=== PATIENT | male | born 2000 | race Caucasian/White ===

== ENCOUNTER → 2019-11-20 | Outpatient (CLI) | payer OTHER ==
--- NOTE | 2019-11-21 03:38 | MR ---
EXAMINATION TYPE: MR brain wo/w con DATE OF EXAM: 11/20/2019 COMPARISON: HISTORY: R/O MS, sharp pain and numbness in legs CONTRAST: Standard multiplanar, multisequence MRI departmental protocol utilizing 6.5 mL intravenous Gadavist g adolinium contrast. Ventricles and sulci appear normal. There is no mass effect nor midline shift. Diffusion images show no evidence of an infarct. Corpus callosum appears normal. Sella turcica appears normal. Brainstem ap pears normal. There is no evidence of cerebral edema. Peters-white matter structures have normal signal pattern. The contrast images show no pathologic enhancement. There is normal enhancement of the veno us sinuses. Optic chiasm appears normal. Pituitary stalk is in the midline. IMPRESSION: Normal MR scan of the brain. No evidence of demyelinating disease.
== END | disposition home or self-care (01) ==
LOC: RADMRIMAIN 15:17
PROVIDERS: ATTEND Nurse Practitioner Adult Health
DX: G43.909 Migraine, unspecified, not intractable, without status migrainosus (principal)
CPT/HCPCS: 70553; A9585

== ENCOUNTER 2020-07-29 13:00 | Emergency (ER) | payer OTHER ==
[2020-07-29 13:08] VITALS: TEMP 98.1
[2020-07-29] MEDS ORDERED: ACETAMINOPHEN TAB 500 MG TAB PO STA (13:25)
[2020-07-29] MEDS ORDERED: methylPREDNISolone SOD SUCCI 125 MG/2 ML VIAL IV STA (13:26)
[2020-07-29] MEDS ORDERED: SODIUM CHLORIDE 0.9% 1,000 ML IV ONE (13:26)
--- NOTE | 2020-07-29 13:28 | ED ---
SOB HPI - General Chief Complaint: Shortness of Breath Stated Complaint: Chest Pain, SOB Time Seen by Provider: 07/29/20 13:21 Source: patient, RN notes reviewed, old records reviewed Mode of arrival: ambulatory Limitations: no limitations - History of Present Illness Initial Comments: 20-year-old male presents emergency department today with cough shortness of breath and body aches for the past 2 days. He reports he is exposed with possible covid contact this weekend. Patient denies recent Motrin or Tylenol. He reports he does have chest pain with breathing. Patient states that he has no nausea or vomiting. He is otherwise healthy. He does occasionally vape. - Related Data Previous Rx's Medication Instructions Recorded Albuterol Inhaler [Ventolin Hfa 1 puff INHALATION RT-QID #1 puff 07/29/20 Inhaler] Allergies Allergy/AdvReac Type Severity Reaction Status Date / Time No Known Allergies Allergy Verified 07/29/20 13:08 Review of Systems ROS Statement: Those systems with pertinent positive or pertinent negative responses have been documented in the HPI. ROS Other: All systems not noted in ROS Statement are negative. Past Medical History Past Medical History: No Reported History History of Any Multi-Drug Resistant Organisms: None Reported Past Surgical History: Ear Surgery Past Psychological History: No Psychological Hx Reported Smoking Status: Vaper Past Alcohol Use History: None Reported Past Drug Use History: Marijuana General Exam - General Exam Comments Initial Comments: A 20-year-old male. No distress Limitations: no limitations General appearance: alert, in no apparent distress Head exam: Present: atraumatic, normocephalic, normal inspection Eye exam: Present: normal appearance, PERRL, EOMI. Absent: scleral icterus, conjunctival injection, periorbital swelling ENT exam: Present: normal exam, mucous membranes moist Neck exam: Present: normal inspection. Absent: tenderness, meningismus, lymphadenopathy Respiratory exam: Present: normal lung sounds bilaterally. Absent: respiratory distress, wheezes, rales, rhonchi, stridor Cardiovascular Exam: Present: regular rate, normal rhythm, normal heart sounds. Absent: systolic murmur, diastolic murmur, rubs, gallop, clicks GI/Abdominal exam: Present: soft, normal bowel sounds. Absent: distended, tenderness, guarding, rebound, rigid Extremities exam: Present: normal inspection, full ROM, normal capillary refill. Absent: tenderness, pedal edema, joint swelling, calf tenderness Back exam: Present: normal inspection Neurological exam: Present: alert, oriented X3, CN II-XII intact Psychiatric exam: Present: normal affect, normal mood Skin exam: Present: warm Course Vital Signs 07/29/20 13:05 Temperature 98.1 F Pulse Rate 89 Respiratory 18 Rate Blood Pressure 116/77 O2 Sat by Pulse 100 Oximetry Medical Decision Making - Medical Decision Making 20-year-old male present to the ER today for evaluation of complaints of difficulty breathing bodyaches chest discomfort. Patient was exposed to cocaine 19 over the weekend. At this time patient's labs reviewed. Mildly dehydrated lactic reports here appears confluent bolus. Chest x-rays benign for acute process. EKG is reviewed and unremarkable. Discussed at this time with patient's symptoms is likely that he does have viral cold 119 infection. Discussed return parameters and symptom control home. - Lab Data Result diagrams: 07/29/20 13:26 07/29/20 13:26 Lab Results 07/29/20 07/29/20 07/29/20 Range/Units 13:26 13:26 13:26 WBC 4.6 (3.8-10.6) k/uL RBC 5.78 (4.30-5.90) m/uL Hgb 17.2 (13.0-17.5) gm/dL Hct 50.7 (39.0-53.0) % MCV 87.8 (80.0-100.0) fL MCH 29.8 (25.0-35.0) pg MCHC 34.0 (31.0-37.0) g/dL RDW 12.4 (11.5-15.5) % Plt Count 199 (150-450) k/uL Neutrophils % 44 % Lymphocytes % 41 % Monocytes % 6 % Eosinophils % 4 % Basophils % 1 % Neutrophils # 2.1 (1.3-7.7) k/uL Lymphocytes # 1.9 (1.0-4.8) k/uL Monocytes # 0.3 (0-1.0) k/uL Eosinophils # 0.2 (0-0.7) k/uL Basophils # 0.0 (0-0.2) k/uL Sodium 140 (137-145) mmol/L Potassium 3.9 (3.5-5.1) mmol/L Chloride 105 (98-107) mmol/L Carbon Dioxide 21 L (22-30) mmol/L Anion Gap 14 mmol/L BUN 11 (9-20) mg/dL Creatinine 0.98 (0.66-1.25) mg/dL Est GFR (CKD-EPI)AfAm >90 (>60 ml/min/1.73 sqM) Est GFR (CKD-EPI)NonAf >90 (>60 ml/min/1.73 sqM) Glucose 97 (74-99) mg/dL Plasma Lactic Acid Andrew 3.0 H* (0.7-2.0) mmol/L Calcium 10.5 H (8.4-10.2) mg/dL Magnesium 2.1 (1.6-2.3) mg/dL Total Bilirubin 1.0 (0.2-1.3) mg/dL AST 20 (17-59) U/L ALT 13 (4-49) U/L Alkaline Phosphatase 74 (38-126) U/L Lactate Dehydrogenase 319 (313-618) U/L C-Reactive Protein <5.0 (<10.0) mg/L Total Protein 8.7 H (6.3-8.2) g/dL Albumin 5.5 H (3.5-5.0) g/dL 07/29/20 13:27 EKG shows sinus rhythm with short GA interval. Other crowe normal EKG. Ventricular rate of 71 bpm. Verbal is 106 ms. QS duration is 98 ms. QT QTc is 46/[address] elevation. Disposition Clinical Impression: Suspected COVID-19 virus infection Disposition: HOME SELF-CARE Condition: Good Instructions (If sedation given, give patient instructions): Upper Respiratory Infection (ED) Additional Instructions: Patient advised rest, increase fluid intake. Alternate Tylenol and Motrin for fever and body aches. Take medication using inhaler as prescribed. Patient should be avoiding any further contact until results of testing and quarantine for 14 days. Return to the emergency department if any severe worsening symptoms occur Prescriptions: Albuterol Inhaler [Ventolin Hfa Inhaler] 1 puff INHALATION RT-QID #1 puff Is patient prescribed a controlled substance at d/c from ED?: No Referrals: None,Stated [Primary Care Provider] - 1-2 days Valerie Patel MD [REFERRING] - 1-2 days Time of Disposition: 14:25
[2020-07-29 13:51] LABS: Basophils % (A) 1 %; Eosinophils # (A) 0.2 k/uL (0-0.7); Eosinophils % (A) 4 %; HCT 50.7 % (39.0-53.0); HGB 17.2 gm/dL (13.0-17.5); Lymphocytes # (A) 1.9 k/uL (1.0-4.8); Lymphocytes % (A) 41 %; MCH 29.8 pg (25.0-35.0); MCV 87.8 fL (80.0-100.0); Mean Platelet Volume 7.8; Monocytes # (A) 0.3 k/uL (0-1.0); Monocytes % (A) 6 %; Neutrophils # (A) 2.1 k/uL (1.3-7.7); Neutrophils % (A) 44 %; Platelet Count 199 k/uL (150-450); RBC 5.78 m/uL (4.30-5.90); RDW 12.4 % (11.5-15.5); WBC 4.6 k/uL (3.8-10.6)
[2020-07-29 14:01] LABS: ALT 13 U/L (4-49); AST 20 U/L (17-59); African American GFR (CKD) >90 (>60 ml/min/1.73 sqM); Albumin 5.5 g/dL (3.5-5.0); Alkaline Phosphatase 74 U/L (38-126); Anion Gap 14 mmol/L; Blood Urea Nitrogen 11 mg/dL (9-20); C Reactive Protein <5.0 mg/L (<10.0); Calcium 10.5 mg/dL (8.4-10.2); Carbon Dioxide 21 mmol/L (22-30); Chloride 105 mmol/L (98-107); Glucose 97 mg/dL (74-99); LDH 319 U/L (313-618); Magnesium 2.1 mg/dL (1.6-2.3); Non-African American GFR(CKD) >90 (>60 ml/min/1.73 sqM); Potassium 3.9 mmol/L (3.5-5.1); Sodium 140 mmol/L (137-145); Total Protein 8.7 g/dL (6.3-8.2)
--- NOTE | 2020-07-29 14:15 | XR ---
EXAMINATION TYPE: XR chest 1V portable DATE OF EXAM: 07/29/2020 CLINICAL HISTORY: Suspected COVID-19 pneumonia. TECHNIQUE: Portable frontal view of the chest. COMPARISON: None FINDINGS: The cardiomediastinal silhouette is within normal limits for size. Pulmonary vasculature i s normal. There is no focal air space opacity, pleural effusion, or pneumothorax seen. The osseous st ructures are intact. IMPRESSION: No focal airspace opacity.
[2020-07-29 14:58] VITALS: BP 113/65; PULSE 63; RESP 18
== END 2020-07-29 14:58 | disposition home or self-care (01) ==
LOC: EC 13:00
DX: R06.02 Shortness of breath (principal); R07.1 Chest pain on breathing; E86.0 Dehydration; F17.290 Nicotine dependence, other tobacco product, uncomplicated; Z20.828 Contact with and (suspected) exposure to other viral communicable diseases
CPT/HCPCS: 36415; 93005; 80053; 83605; 83615; 83735; 85025; 86140; 71045; 99285; 96374; U0003; J2930

== ENCOUNTER → 2021-10-07 | Outpatient (CLI) | payer OTHER ==
--- NOTE | 2021-10-07 11:27 | MR ---
EXAMINATION TYPE: MR shoulder LT wo con DATE OF EXAM: 10/07/2021 COMPARISON: None. HISTORY: Left shoulder pain for 4 months due to fall TECHNIQUE: Multiplanar, multisequence imaging of the left shoulder is performed without contrast. FINDINGS: Rotator Cuff: Distal supraspinatus and infraspinatus tendons are intact. Rotator cuff muscle bulk is preserved. Subscapularis tendon within normal limits. Acromioclavicular Joint: Within normal limits Glenohumeral Joint: No significant effusion or spine. Labrum: The labrum appears grossly intact given limitation of non-arthrogram study. Biceps Tendon: The long head of biceps is in normal location within bicipital groove. Bone marrow signal: No suspicious focal edema. Other: No slight irregularities along the lateral aspect of the visualized ribs could reflect healed nondisplaced fractures given patient's history. For reference axial image 2. IMPRESSION: No rotator cuff or labral tear identified. Possible healed posterior lateral nondisplaced left rib fractures. Correlate clinically.
== END | disposition home or self-care (01) ==
LOC: RADMRIMAIN 08:19
PROVIDERS: ATTEND Internal Medicine
DX: M25.512 Pain in left shoulder (principal)

== ENCOUNTER 2021-11-23 16:29 | Emergency (ER) | payer OTHER ==
[2021-11-23] MEDS ORDERED: SODIUM CHLORIDE 0.9% 1,000 ML IV STA (16:54)
[2021-11-23] MEDS ORDERED: ONDANSETRON 4 MG/2 ML VIAL IVP STA (16:54)
[2021-11-23] MEDS ORDERED: KETOROLAC 30 MG/ML 1 ML VIAL IVP STA (16:54)
--- NOTE | 2021-11-23 17:00 | ED ---
General Adult HPI - General Chief complaint: Chest Pain Stated complaint: headache, abd pain Time Seen by Provider: 11/23/21 16:40 Source: patient, RN notes reviewed Mode of arrival: wheelchair Limitations: no limitations - History of Present Illness Initial comments: 21-year-old male presents to the emergency department accompanied by his mother for evaluation of left lateral chest pain that radiates into the left axilla. Patient states this pain began shortly after he was diagnosed with Covid the end of October and has persisted since. Patient states his symptoms are also accompanied by shortness of breath, occasional dry cough, loss of appetite, nausea, and vomiting. Reports a recent visit to urgent care where he was prescribed Flexeril and Pepcid; reports no change in symptoms. States he took Tylenol earlier today for headache, but did not experience any improvement in chest wall pain. States pain is made worse by movement of the upper extremities and palpation. States he has been feeling so poorly that he is going nowhere for the past month. Denies fever, chills, dizziness, abdominal pain, constipation, diarrhea, dysuria, or hematuria. - Related Data Home Medications Medication Instructions Recorded Confirmed Cyclobenzaprine [Flexeril] 5 mg PO BID PRN 11/23/21 11/23/21 Famotidine 20 mg PO HS 11/23/21 11/23/21 Previous Rx's Medication Instructions Recorded Ibuprofen [Motrin] 600 mg PO Q8HR PRN #30 tab 11/23/21 Ondansetron Odt [Zofran Odt] 4 mg PO Q8HR PRN #10 tab 11/23/21 Allergies Allergy/AdvReac Type Severity Reaction Status Date / Time No Known Allergies Allergy Verified 11/23/21 17:09 Review of Systems ROS Statement: Those systems with pertinent positive or pertinent negative responses have been documented in the HPI. ROS Other: All systems not noted in ROS Statement are negative. Past Medical History Past Medical History: No Reported History History of Any Multi-Drug Resistant Organisms: None Reported Past Surgical History: Ear Surgery Past Psychological History: No Psychological Hx Reported Smoking Status: Vaper Past Alcohol Use History: None Reported Past Drug Use History: Marijuana General Exam Limitations: no limitations (Well-developed, very slender male in no acute distress. Initial temperature 97.7, pulse 99, respirations 18, blood pressure 146/104, pulse ox 98% on room air.) General appearance: alert, in no apparent distress ENT exam: Present: normal exam, normal oropharynx, mucous membranes moist Respiratory exam: Present: normal lung sounds bilaterally, chest wall tenderness (Left lateral chest wall tenderness upon palpation from the sixth intercostal space extending to the left axilla). Absent: respiratory distress, wheezes, rales, rhonchi, stridor Cardiovascular Exam: Present: regular rate, normal rhythm, normal heart sounds. Absent: systolic murmur, diastolic murmur, rubs, gallop, clicks GI/Abdominal exam: Present: soft, normal bowel sounds. Absent: distended, tenderness, guarding, rebound, rigid Back exam: Present: normal inspection. Absent: CVA tenderness (R), CVA tenderness (L) Neurological exam: Present: alert, oriented X3, CN II-XII intact Psychiatric exam: Present: normal affect, normal mood Skin exam: Present: warm, dry, intact, normal color. Absent: rash Course Vital Signs 11/23/21 11/23/21 16:32 17:22 Temperature 97.7 F 98.4 F Pulse Rate 99 63 Respiratory 18 14 Rate Blood Pressure 146/104 105/75 O2 Sat by Pulse 98 99 Oximetry Medical Decision Making - Medical Decision Making 21-year-old male with recent Covid illness presents to the emergency department for evaluation of left-sided chest pain, poor appetite, and fatigue. Upon exam, patient is no acute distress, though does not appear to feel well. Vital signs are stable. Left lateral chest tenderness upon palpation radiating up into the left axilla. Chest x-ray was unremarkable. EKG shows normal sinus rhythm. Laboratory studies were obtained and are unremarkable. Patient was given IV fluids, nausea medicine, and pain medicine with improvement. Able to tolerate small intake of fluids. Results were reviewed. This appears to be noncardiac chest pain, most likely costochondritis. Poor appetite, fatigue, and ongoing nausea may be related to recent Covid illness. Findings discussed with patient and mother. He will be discharged home to follow up with his PCP as scheduled. Prescribed Zofran. Return parameters were discussed in detail. Patient and mother verbalized understanding and agree with this plan. This patient's care was discussed with my attending Dr. Rubio. - Lab Data Result diagrams: 11/23/21 16:18 02/22/22 16:18 Lab Results 11/23/21 11/23/21 11/23/21 Range/Units 16:18 16:18 16:18 WBC 4.9 (3.8-10.6) k/uL RBC 5.33 (4.30-5.90) m/uL Hgb 16.0 (13.0-17.5) gm/dL Hct 46.3 (39.0-53.0) % MCV 86.8 (80.0-100.0) fL MCH 30.1 (25.0-35.0) pg MCHC 34.7 (31.0-37.0) g/dL RDW 11.6 (11.5-15.5) % Plt Count 165 (150-450) k/uL MPV 7.5 Neutrophils % 62 % Lymphocytes % 27 % Monocytes % 7 % Eosinophils % 2 % Basophils % 2 % Neutrophils # 3.0 (1.3-7.7) k/uL Lymphocytes # 1.3 (1.0-4.8) k/uL Monocytes # 0.3 (0-1.0) k/uL Eosinophils # 0.1 (0-0.7) k/uL Basophils # 0.1 (0-0.2) k/uL D-Dimer (<0.60) mg/L FEU Sodium 139 (137-145) mmol/L Potassium 3.8 (3.5-5.1) mmol/L Chloride 104 (98-107) mmol/L Carbon Dioxide 24 (22-30) mmol/L Anion Gap 11 mmol/L BUN 7 L (9-20) mg/dL Creatinine 0.71 (0.66-1.25) mg/dL Est GFR (CKD-EPI)AfAm >90 (>60 ml/min/1.73 sqM) Est GFR (CKD-EPI)NonAf >90 (>60 ml/min/1.73 sqM) Glucose 103 H (74-99) mg/dL Calcium 10.0 (8.4-10.2) mg/dL Magnesium 2.1 (1.6-2.3) mg/dL Total Bilirubin 1.3 (0.2-1.3) mg/dL AST 20 (17-59) U/L ALT 16 (4-49) U/L Alkaline Phosphatase 81 (38-126) U/L Troponin I <0.012 (0.000-0.034) ng/mL Total Protein 8.0 (6.3-8.2) g/dL Albumin 5.1 H (3.5-5.0) g/dL 11/23/21 Range/Units 16:18 WBC (3.8-10.6) k/uL RBC (4.30-5.90) m/uL Hgb (13.0-17.5) gm/dL Hct (39.0-53.0) % MCV (80.0-100.0) fL MCH (25.0-35.0) pg MCHC (31.0-37.0) g/dL RDW (11.5-15.5) % Plt Count (150-450) k/uL MPV Neutrophils % % Lymphocytes % % Monocytes % % Eosinophils % % Basophils % % Neutrophils # (1.3-7.7) k/uL Lymphocytes # (1.0-4.8) k/uL Monocytes # (0-1.0) k/uL Eosinophils # (0-0.7) k/uL Basophils # (0-0.2) k/uL D-Dimer <0.17 (<0.60) mg/L FEU Sodium (137-145) mmol/L Potassium (3.5-5.1) mmol/L Chloride (98-107) mmol/L Carbon Dioxide (22-30) mmol/L Anion Gap mmol/L BUN (9-20) mg/dL Creatinine (0.66-1.25) mg/dL Est GFR (CKD-EPI)AfAm (>60 ml/min/1.73 sqM) Est GFR (CKD-EPI)NonAf (>60 ml/min/1.73 sqM) Glucose (74-99) mg/dL Calcium (8.4-10.2) mg/dL Magnesium (1.6-2.3) mg/dL Total Bilirubin (0.2-1.3) mg/dL AST (17-59) U/L ALT (4-49) U/L Alkaline Phosphatase (38-126) U/L Troponin I (0.000-0.034) ng/mL Total Protein (6.3-8.2) g/dL Albumin (3.5-5.0) g/dL - EKG Data EKG shows normal: sinus rhythm Rate: normal EKG Comments: EKG was obtained at 1643 and shows normal sinus rhythm with short WA interval. Ventricular rate 64, WA interval 109, QRS duration 102, QT/QTC 411/4021. Borderline ECG. - Radiology Data Radiology results: report reviewed, image reviewed Two-view chest x-ray was obtained. Report was reviewed in its entirety. Impression per Dr. Gutierrez as no acute cardiopulmonary disease/process. Disposition Clinical Impression: Costochondritis, Nausea Disposition: HOME SELF-CARE Condition: Stable Instructions (If sedation given, give patient instructions): Costochondritis (ED), Acute Nausea and Vomiting (ED) Additional Instructions: Take Zofran 30 minutes prior to meal, especially if nauseous. Take Motrin for chest wall pain. Follow-up with your PCP as scheduled. Return to the emergency department with any new, worsening, or concerning symptoms. Prescriptions: Ibuprofen [Motrin] 600 mg PO Q8HR PRN #30 tab PRN Reason: Pain Ondansetron Odt [Zofran Odt] 4 mg PO Q8HR PRN #10 tab PRN Reason: Nausea Is patient prescribed a controlled substance at d/c from ED?: No Referrals: Aguilar Cross MD [REFERRING] - 1-2 days Time of Disposition: 19:22
[2021-11-23 17:25] VITALS: BP 105/75; PULSE 63; RESP 14; TEMP 98.4
[2021-11-23 17:25] LABS: Basophils # (A) 0.1 k/uL (0-0.2); Basophils % (A) 2 %; Eosinophils # (A) 0.1 k/uL (0-0.7); Eosinophils % (A) 2 %; HCT 46.3 % (39.0-53.0); Lymphocytes # (A) 1.3 k/uL (1.0-4.8); Lymphocytes % (A) 27 %; MCH 30.1 pg (25.0-35.0); MCHC 34.7 g/dL (31.0-37.0); MCV 86.8 fL (80.0-100.0); Mean Platelet Volume 7.5; Monocytes # (A) 0.3 k/uL (0-1.0); Monocytes % (A) 7 %; Neutrophils % (A) 62 %; Platelet Count 165 k/uL (150-450); RBC 5.33 m/uL (4.30-5.90); RDW 11.6 % (11.5-15.5); WBC 4.9 k/uL (3.8-10.6)
[2021-11-23 17:36] LABS: ALT 16 U/L (4-49); AST 20 U/L (17-59); African American GFR (CKD) >90 (>60 ml/min/1.73 sqM); Albumin 5.1 g/dL (3.5-5.0); Alkaline Phosphatase 81 U/L (38-126); Anion Gap 11 mmol/L; Blood Urea Nitrogen 7 mg/dL (9-20); Carbon Dioxide 24 mmol/L (22-30); Chloride 104 mmol/L (98-107); Glucose 103 mg/dL (74-99); Magnesium 2.1 mg/dL (1.6-2.3); Non-African American GFR(CKD) >90 (>60 ml/min/1.73 sqM); Potassium 3.8 mmol/L (3.5-5.1); Sodium 139 mmol/L (137-145); Total Bilirubin 1.3 mg/dL (0.2-1.3)
--- NOTE | 2021-11-23 17:50 | XR ---
EXAMINATION TYPE: XR chest 2V DATE OF EXAM: 11/23/2021 5:31 PM COMPARISON:Chest radiographs from January 2020 TECHNIQUE: XR chest 2V Frontal and lateral views of the chest. CLINICAL INDICATION:Male, 21 years old with history of Chest Pain; FINDINGS: Lungs/Pleura: There is no evidence of pleural effusion, focal consolidation, or pneumothorax. Pulmonary vascularity: Unremarkable. Heart/mediastinum: Cardiomediastinal silhouette is unremarkable. Musculoskeletal: No acute osseous pathology. IMPRESSION: No acute cardiopulmonary disease/process.
[2021-11-23] MEDS ORDERED: ONDANSETRON 4 MG ODT STARTER PACK 2 TAB BTL PO STA (19:23)
== END 2021-11-23 19:39 | disposition home or self-care (01) ==
LOC: EC 16:29
DX: M94.0 Chondrocostal junction syndrome [Tietze] (principal); R11.0 Nausea; F17.290 Nicotine dependence, other tobacco product, uncomplicated; F12.90 Cannabis use, unspecified, uncomplicated
CPT/HCPCS: 99285; 96374; 96375; 96361; 36415; 93005; 85379; 80053; 83735; 84484; 85025; 71046; J2405; J1885

== ENCOUNTER 2022-05-06 09:35 | Emergency (ER) | payer OTHER ==
[2022-05-06 09:47] VITALS: TEMP 98.1
[2022-05-06] MEDS ORDERED: KETOROLAC 15 MG/ML 1 ML VIAL IVP STA (10:13)
--- NOTE | 2022-05-06 10:13 | ED ---
General Adult HPI - General Chief complaint: Chest Pain Stated complaint: chest pain Time Seen by Provider: 05/06/22 10:02 Source: patient, family, RN notes reviewed, old records reviewed Mode of arrival: ambulatory Limitations: no limitations - History of Present Illness Initial comments: This is a well-appearing 22-year-old male that presents to the emergency room with a family member complaining of left-sided chest pain that came on this morning while he was getting ready to go to work. Patient states that he has never had this pain before. It is worse with palpation or deep breaths. Mostly on the left side and left upper back. He denies any fevers. Denies any medical history. He does vape with recreational marijuana every couple hours. -: hour(s) Location: chest (Left-sided) Severity scale (1-10): 10 Quality: constant Consistency: constant Improves with: none Worsens with: movement, other (Palpation or deep breath) Associated Symptoms: denies other symptoms Treatments Prior to Arrival: none - Related Data Previous Rx's Medication Instructions Recorded Ibuprofen [Motrin] 600 mg PO Q8HR PRN #30 tab 05/06/22 Allergies Allergy/AdvReac Type Severity Reaction Status Date / Time No Known Allergies Allergy Verified 05/06/22 12:01 Review of Systems ROS Statement: Those systems with pertinent positive or pertinent negative responses have been documented in the HPI. ROS Other: All systems not noted in ROS Statement are negative. Past Medical History Past Medical History: No Reported History History of Any Multi-Drug Resistant Organisms: None Reported Past Surgical History: Ear Surgery Past Psychological History: No Psychological Hx Reported Smoking Status: Vaper Past Alcohol Use History: None Reported Past Drug Use History: Marijuana General Exam Limitations: no limitations General appearance: alert, in no apparent distress Head exam: Present: atraumatic Neck exam: Present: normal inspection, full ROM. Absent: tenderness, meningismus Respiratory exam: Present: normal lung sounds bilaterally. Absent: respiratory distress, accessory muscle use Cardiovascular Exam: Present: regular rate, normal rhythm GI/Abdominal exam: Present: soft. Absent: distended, tenderness, rigid Extremities exam: Present: normal capillary refill. Absent: pedal edema Back exam: Present: normal inspection. Absent: tenderness, CVA tenderness (R), CVA tenderness (L), rash noted Neurological exam: Present: alert, oriented X3 Psychiatric exam: Present: normal affect, normal mood Skin exam: Present: warm, dry, normal color. Absent: cyanosis, diaphoretic, p etechiae, pallor Course Vital Signs 05/06/22 05/06/22 09:44 12:10 Temperature 98.1 F Pulse Rate 79 59 L Respiratory 20 18 Rate Blood Pressure 119/83 112/70 O2 Sat by Pulse 100 97 Oximetry Medical Decision Making - Medical Decision Making Patient presents with left-sided chest pain that started today. He denies cough, fevers, nausea vomiting or diarrhea. There is no evidence of leukocytosis. Hemoglobin and hematocrit are stable. Troponin is 0.012 and EKG shows sinus rhythm. Vital signs are stable. He has no medical history and does not take any medicine on a daily basis. He does vape with marijuana. PERC score negative. On exam, patient's pain is worse with inspiration and palpation. This is likely costochondritis. He was given Toradol for pain. Instructed to take Motrin as needed for pain and increase his fluid intake. Follow-up with his primary care doctor next week. Return to the emergency room with any new or concerning symptoms. Case discussed with Dr. Rubio. - Lab Data Result diagrams: 05/06/22 10:27 05/06/22 10:27 Lab Results 05/06/22 05/06/22 05/06/22 Range/Units 10:27 10:27 10:27 WBC 3.6 L (3.8-10.6) k/uL RBC 5.13 (4.30-5.90) m/uL Hgb 15.0 (13.0-17.5) gm/dL Hct 44.6 (39.0-53.0) % MCV 87.1 (80.0-100.0) fL MCH 29.2 (25.0-35.0) pg MCHC 33.5 (31.0-37.0) g/dL RDW 12.2 (11.5-15.5) % Plt Count 215 (150-450) k/uL MPV 7.5 Neutrophils % 62 % Lymphocytes % 25 % Monocytes % 6 % Eosinophils % 4 % Basophils % 1 % Neutrophils # 2.2 (1.3-7.7) k/uL Lymphocytes # 0.9 L (1.0-4.8) k/uL Monocytes # 0.2 (0-1.0) k/uL Eosinophils # 0.2 (0-0.7) k/uL Basophils # 0.0 (0-0.2) k/uL Sodium 140 (137-145) mmol/L Potassium 4.0 (3.5-5.1) mmol/L Chloride 107 (98-107) mmol/L Carbon Dioxide 23 (22-30) mmol/L Anion Gap 10 mmol/L BUN 9 (9-20) mg/dL Creatinine 0.86 (0.66-1.25) mg/dL Est GFR (CKD-EPI)AfAm >90 (>60 ml/min/1.73 sqM) Est GFR (CKD-EPI)NonAf >90 (>60 ml/min/1.73 sqM) Glucose 106 H (74-99) mg/dL Calcium 9.3 (8.4-10.2) mg/dL Magnesium 1.9 (1.6-2.3) mg/dL Total Bilirubin 1.1 (0.2-1.3) mg/dL AST 21 (17-59) U/L ALT 13 (4-49) U/L Alkaline Phosphatase 77 (38-126) U/L Troponin I <0.012 (0.000-0.034) ng/mL Total Protein 7.6 (6.3-8.2) g/dL Albumin 5.0 (3.5-5.0) g/dL Disposition Clinical Impression: Musculoskeletal chest pain Disposition: HOME SELF-CARE Condition: Good Instructions (If sedation given, give patient instructions): Chest Pain (ED), Costochondritis (ED) Additional Instructions: Take Tylenol and or Motrin as needed for pain. Increase your fluid intake. Stop vaping. Follow-up with the primary care doctor next week. Return to the emergency room with any new or concerning symptoms. Prescriptions: Ibuprofen [Motrin] 600 mg PO Q8HR PRN #30 tab PRN Reason: Pain Is patient prescribed a controlled substance at d/c from ED?: No Referrals: None,Stated [Primary Care Provider] - 1-2 days Time of Disposition: 11:51
[2022-05-06 10:36] LABS: Basophils % (A) 1 %; Eosinophils # (A) 0.2 k/uL (0-0.7); Eosinophils % (A) 4 %; HCT 44.6 % (39.0-53.0); Lymphocytes # (A) 0.9 k/uL (1.0-4.8); Lymphocytes % (A) 25 %; MCH 29.2 pg (25.0-35.0); MCHC 33.5 g/dL (31.0-37.0); MCV 87.1 fL (80.0-100.0); Mean Platelet Volume 7.5; Monocytes # (A) 0.2 k/uL (0-1.0); Monocytes % (A) 6 %; Neutrophils # (A) 2.2 k/uL (1.3-7.7); Neutrophils % (A) 62 %; Platelet Count 215 k/uL (150-450); RBC 5.13 m/uL (4.30-5.90); RDW 12.2 % (11.5-15.5); WBC 3.6 k/uL (3.8-10.6)
[2022-05-06 10:48] LABS: ALT 13 U/L (4-49); AST 21 U/L (17-59); African American GFR (CKD) >90 (>60 ml/min/1.73 sqM); Alkaline Phosphatase 77 U/L (38-126); Anion Gap 10 mmol/L; Blood Urea Nitrogen 9 mg/dL (9-20); Calcium 9.3 mg/dL (8.4-10.2); Carbon Dioxide 23 mmol/L (22-30); Chloride 107 mmol/L (98-107); Glucose 106 mg/dL (74-99); Magnesium 1.9 mg/dL (1.6-2.3); Non-African American GFR(CKD) >90 (>60 ml/min/1.73 sqM); Sodium 140 mmol/L (137-145); Total Bilirubin 1.1 mg/dL (0.2-1.3); Total Protein 7.6 g/dL (6.3-8.2)
--- NOTE | 2022-05-06 11:10 | XR ---
EXAMINATION TYPE: XR chest 2V DATE OF EXAM: 05/06/2022 COMPARISON: Chest x-ray 11/23/2021 HISTORY: Chest pain TECHNIQUE: Frontal and lateral views of the chest are obtained. FINDINGS: There is no focal air space opacity, pleural effusion, or pneumothorax seen. The cardiac silhouette size is within normal limits. There are overlying leads. The osseous structures are intac t. IMPRESSION: No acute cardiopulmonary process.
[2022-05-06] MEDS ORDERED: ACETAMINOPHEN TAB 325 MG TAB PO STA (11:50)
[2022-05-06 12:12] VITALS: BP 112/70; PULSE 59; RESP 18
== END 2022-05-06 12:12 | disposition home or self-care (01) ==
LOC: EC 09:35
DX: R07.89 Other chest pain (principal); F17.209 Nicotine dependence, unspecified, with unspecified nicotine-induced disorders
CPT/HCPCS: 36415; 80053; 83735; 84484; 85025; 71046; 99285; 96374; J1885

== ENCOUNTER → 2024-05-01 | Outpatient (CLI) | payer OTHER ==
--- NOTE | 2024-05-01 08:35 | US ---
EXAMINATION TYPE: US abdomen complete DATE OF EXAM: 05/01/2024 COMPARISON: NONE CLINICAL INDICATION: Male, 24 years old with history of R10.32 LEFT LOWER QUADRANT PAIN; N50.812 Left test; Pain left abdomen, patient states the pain has gone away x 3 weeks. TECHNIQUE: Multiple sonographic images of the abdomen are obtained. FINDINGS: EXAM MEASUREMENTS: Liver Length: 15.1 cm Gallbladder Wall: 0.18 cm CBD: 0.32 cm Spleen: 10.2 cm Right Kidney: 10.8 x 5.2 x 3.9 cm Left Kidney: 11.2 x 4.3 x 4.5 cm [employer] NOTES: Limited due to gas. Pancreas: Slightly limited due to gas. Liver: Appears wnl Gallbladder: Appears anechoic. Evidence for sonographic Cardoza's sign: No CBD: Appears wnl Spleen: Appears wnl Right Kidney: No hydronephrosis or masses seen Left Kidney: No hydronephrosis or masses seen Upper IVC: Appears wnl Abd Aorta: Appears wnl IMPRESSION: No evidence for acute process.
--- NOTE | 2024-05-01 08:48 | US ---
EXAMINATION TYPE: US scrotum with doppler. Grayscale and color Doppler Duplex imaging performed of ankit dove scrotum. DATE OF EXAM: 05/01/2024 COMPARISON: NONE CLINICAL INDICATION: Male, 24 years old with history of R10.32 LEFT LOWER QUADRANT PAIN; N50.812 Left test; Intermittent dull left testicular pain, however the patient states he has had no pain for 3 we eks. EXAM MEASUREMENTS: TESTICLES: Right Testicle: 4.4 x 2.6 x 1.8 cm Left Testicle: 4.3 x 2.6 x 2.1 cm EPIDIDYMIS HEAD: Right Epididymis: 0.8 x 1.0 x 0.8 cm Left Epididymis: 0.8 x 1.3 x 0.7 cm Doppler performed to assess for testicular vascularity; good bilateral color flow and waveforms are s een. Presence of hydroceles: Yes, right: 1.5 x 1.6 x 0.5 cm. Left: 4.4 x 1.4 x 0.7 cm. Presence of varicoceles: No IMPRESSION: 1. Appropriate arterial and venous spectral waveforms to the testes. 2. Trace bilateral hydrocele. 3. No evidence Yi testicular mass.
--- NOTE | 2024-05-01 09:10 | XR ---
EXAMINATION TYPE: XR Hip LT and AP Pelvis DATE OF EXAM: 05/01/2024 8:23 AM CLINICAL INDICATION:Male, 24 years old with history of M25.552 Pain left hip M79.605 Pain LLE; [facility] COMPARISON: None. TECHNIQUE: XR Hip LT and AP Pelvis; hip was examined in the frontal and lateral projections and a AP pelvis. FINDINGS: No evidence for acute process, joint dislocation or significant soft tissue swelling. IMPRESSION: No acute process.
--- NOTE | 2024-05-01 09:10 | XR ---
EXAMINATION TYPE: XR femur LT DATE OF EXAM: 05/01/2024 8:23 AM CLINICAL INDICATION:Male, 24 years old with history of M25.552 Pain left hip M79.605 Pain LLE; [facility] COMPARISON: None TECHNIQUE: XR femur LT examined in Frontal and lateral projections. FINDINGS: No evidence of acute osseous pathology, joint dislocation, or soft tissue swelling IMPRESSION: No acute osseous pathology.
== END | disposition home or self-care (01) ==
LOC: RADUSWWP 07:02
PROVIDERS: ATTEND Family Medicine
DX: N50.812 Left testicular pain (principal); M25.552 Pain in left hip; M79.605 Pain in left leg
CPT/HCPCS: 73502; 76700; 76870; 93975

== ENCOUNTER 2024-06-29 11:01 | Emergency (ER) | payer OTHER ==
[2024-06-29 11:32] VITALS: BP 105/69; PULSE 69; RESP 18; TEMP 97.8
--- NOTE | 2024-06-29 12:10 | ED ---
ENT HPI - General Chief complaint: ENT Stated complaint: Bleeding in right ear Time Seen by Provider: 06/29/24 11:33 Source: patient, RN notes reviewed Mode of arrival: ambulatory Limitations: no limitations - History of Present Illness Initial comments: This is a 24-year-old male who presents to the emergency department for bleeding from his right ear. States that this morning he noticed that his ear felt itchy and he put a Q-tip in it. When he took this out he noticed blood on it. States that as the day progressed he continued to check his ear and started to notice more and more blood. He has mild discomfort. Denies any difficulty hearing. Triage noted him to have a migraine for a couple of days beforehand. Patient reports a history of migraines and states that this is typical for him and nothing out of the ordinary. Denies having a migraine currently. - Related Data Previous Rx's Medication Instructions Recorded Ibuprofen [Motrin] 600 mg PO Q8HR PRN #30 tab 05/06/22 Allergies Allergy/AdvReac Type Severity Reaction Status Date / Time No Known Allergies Allergy Verified 06/29/24 11:32 Review of Systems ROS Statement: Those systems with pertinent positive or pertinent negative responses have been documented in the HPI. ROS Other: All systems not noted in ROS Statement are negative. Past Medical History Past Medical History: No Reported History History of Any Multi-Drug Resistant Organisms: None Reported Past Surgical History: Ear Surgery Past Psychological History: No Psychological Hx Reported Smoking Status: Former smoker Past Alcohol Use History: None Reported Past Drug Use History: Marijuana General Exam Limitations: no limitations General appearance: alert, in no apparent distress Head exam: Present: atraumatic, normocephalic, normal inspection ENT exam: Present: other (There is a small area of blood collecting on the right side of the ear canal. No active bleeding. TM is intact.) Respiratory exam: Present: normal lung sounds bilaterally. Absent: respiratory distress, wheezes, rales, rhonchi, stridor Cardiovascular Exam: Present: regular rate, normal rhythm, normal heart sounds. Absent: systolic murmur, diastolic murmur, rubs, gallop, clicks Neurological exam: Present: alert, oriented X3, CN II-XII intact Psychiatric exam: Present: normal affect, normal mood Skin exam: Present: warm, dry, intact, normal color. Absent: rash Course Vital Signs 06/29/24 11:29 Temperature 97.8 F Pulse Rate 69 Respiratory 18 Rate Blood Pressure 105/69 O2 Sat by Pulse 100 Oximetry Medical Decision Making - Medical Decision Making This is a 24-year-old male who presents to the emergency department for bleeding in his ear. Was pt. sent in by a medical professional or institution? @ -No Did you speak to anyone other than the patient for history? @ -No Did you review nursing and triage notes? @ -Yes, and I agree, it is accurate with regards to the patient's symptoms. Were old charts reviewed? @ -No Differential Diagnosis? @ -Barotrauma, ruptured TM, injury, insect bite, scratch, this is not meant to be an all-inclusive list. EKG interpreted by me (3pts min.)? @ -Not obtained X-rays interpreted by me (1pt min.)? @ -Not obtained CT interpreted by me (1pt min.)? @ -Not obtained U/S interpreted by me (1pt. min.)? @ -Not obtained What testing was considered but not performed? (CT, X-rays, U/S, labs)? Why? @ -None What meds were considered but not given? Why? @ -None Did you discuss the management of the patient with other professionals? @ -No Did you reconcile home meds? @ -No Was smoking cessation discussed for >3mins.? @ -No Was critical care preformed (if so, how long)? @ -No Were there social determinants of health that impacted care today? How? (Homelessness, low income, unemployed, alcoholism, drug addiction, transportation, low edu. Level, literacy, decrease access to med. care, [facility], rehab)? @ -No Was there de-escalation of care discussed even if they declined? (Discuss DNR or withdrawal of care, Hospice)? @ -No What co-morbidities impacted this encounter? (DM, HTN, Smoking, COPD, CAD, Cancer, CVA, Hep., AIDS, mental health diagnosis, sleep apnea, morbid obesity)? @ -None Was patient admitted / discharged? @ -Discharged. On exam he had a small collection of blood on the right side of the ear canal. The TM was intact. It appeared that he may have slightly scratched the inside of his ear or something may have caused some irritation. He was sent home with Ciprodex drops to use for the next 7 days. Advised he avoid putting things like Q-tips in his ears. Also advised follow-up with ENT. Patient discharged home in stable condition. Case discussed with ED attending Dr. Simmons. Return precautions reviewed in depth, the patient is instructed to return to the emergency department with any new, worsening, or concerning symptoms. Patient verbalized understanding. Undiagnosed new problem with uncertain prognosis? @ -None Drug Therapy requiring intensive monitoring for toxicity (Heparin, Nitro, Insulin, Cardizem)? @ -None Were any procedures done? @ -None Diagnosis/symptom? @ -Bleeding from right ear Acute, or Chronic, or Acute on Chronic? @ -Acute Uncomplicated (without systemic symptoms) or Complicated (systemic symptoms)? @ -Uncomplicated Side effects of treatment? @ -None Exacerbation, Progression, or Severe Exacerbation] @ -Not applicable Poses a threat to life or bodily function? @ -No Disposition Clinical Impression: Bleeding from right ear Disposition: HOME SELF-CARE Additional Instructions: Return to the emergency department with any new, worsening, or concerning symptoms. Use the Ciprodex drops provided as 4 drops to the right ear twice daily for 7 days. Follow up with ENT for reevaluation. Is patient prescribed a controlled substance at d/c from ED?: No Referrals: Nicolas Collado III, MD [Primary Care Provider] - 1-2 days Perfecto Lopez MD [STAFF PHYSICIAN] - 1-2 days Christophe Altamirano MD [STAFF PHYSICIAN] - 1-2 days Time of Disposition: 12:10
[2024-06-29] MEDS: CIPROFLOXACIN-DEXAMETH 0.3-0.1% DROPS 7.5 ML BTL RIGHT EAR STA (12:26)
== END 2024-06-29 12:32 | disposition home or self-care (01) ==
LOC: EC 11:01
CPT/HCPCS: 99282

== ENCOUNTER → 2024-07-29 | Outpatient (CLI) | payer OTHER ==
--- NOTE | 2024-07-29 13:53 | CT ---
EXAMINATION TYPE: CT abdomen pelvis w con CT DLP: 407 mGycm, Automated exposure control for dose reduction was used. DATE OF EXAM: 07/29/2024 1:42 PM COMPARISON: Scrotal and abdominal ultrasound 05/01/2024 CLINICAL INDICATION:Male, 24 years old with history of R10.2 PELVIC AND PERINEAL PAIN; ABD PAIN TECHNIQUE: Standard CT of the abdomen and pelvis following the administration of 100 cc of Isovue 3 00 IV contrast material and oral contrast. Coronal and sagittal reformats were performed. FINDINGS: LOWER CHEST: Unremarkable ABDOMEN LIVER: Unremarkable GALLBLADDER AND BILE DUCTS: Unremarkable. PANCREAS: Unremarkable. SPLEEN: Unremarkable. ADRENAL GLANDS: Unremarkable. KIDNEYS AND URETERS: No evidence of hydronephrosis or renal calculus. The kidneys enhance symmetrical ly. Contrast is demonstrated within both collecting systems on the delayed phase. PELVIS BLADDER: Unremarkable REPRODUCTIVE: Unremarkable. ABDOMEN & PELVIS STOMACH AND BOWEL: Stomach and duodenum are unremarkable. Enteric contrast reaches the rectum. No foc al bowel wall thickening or surrounding inflammatory changes. The appendix is within normal limits. N o evidence of bowel obstruction. PERITONEUM: No evidence of pneumoperitoneum or free fluid. VASCULATURE: No evidence of aortic aneurysm. MUSCULOSKELETAL: No acute osseous abnormalities. Sclerotic focus within the left hemisacrum likely re presenting a benign bone island. Spina bifida occulta on the left at S1. LYMPH NODES: No evidence for lymphadenopathy. SOFT TISSUE/ABDOMINAL WALL: Unremarkable IMPRESSION: No CT evidence for acute abdominal/pelvic process. [facility], , 07/29/2024 1:51 PM
== END | disposition home or self-care (01) ==
LOC: RADCTMAIN 07:55
PROVIDERS: ATTEND Family Medicine
DX: K59.00 Constipation, unspecified (principal); R10.2 Pelvic and perineal pain
CPT/HCPCS: 74177

== ENCOUNTER → 2024-11-25 | Outpatient (CLI) | payer OTHER ==
--- NOTE | 2024-11-26 23:26 | MR ---
INDICATION: Patient age:Male; 24 years old; Reason for study: M54.16; [facility]. COMPARISONS: CT abdomen and pelvis 07/29/2024. TECHNIQUE: Multi planar, multi sequence imaging was performed utilizing: T1-weighted, T2-weighted, a nd turbo inversion recovery imaging of the lumbar spine. The patient was not given contrast. FINDINGS: The lumbar vertebral bodies do have preserved heights and alignment. Intervertebral disc signal is maintained. The conus medullaris and the distal spinal cord do appear unremarkable with re gards to their signal intensity and morphology. No abnormal STIR signal. L1-L2: No significant disc pathology is identified. The spinal canal and neural foramen are patent. L2-L3: No significant disc pathology is identified. The spinal canal and neural foramen are patent. L3-L4: No significant disc pathology is identified. The spinal canal and neural foramen are patent. L4-L5: No significant disc pathology is identified. The spinal canal and neural foramen are patent L5-S1: No significant disc pathology is identified. The spinal canal and neural foramen are patent Other significant findings: None. IMPRESSION: No definitive evidence for disc herniation or significant spinal canal stenosis. No significant degen erative disc disease. [facility], , 11/26/2024 11:24 PM
== END | disposition home or self-care (01) ==
LOC: RADMRIMAIN 20:45
PROVIDERS: ATTEND Family Medicine
DX: M54.16 Radiculopathy, lumbar region (principal); R20.0 Anesthesia of skin; R20.2 Paresthesia of skin; M79.605 Pain in left leg; Q76.0 Spina bifida occulta
CPT/HCPCS: 72148